=== PATIENT | female | born 1950 | race Caucasian/White ===

== ENCOUNTER → 2016-10-27 | Outpatient (REF) | payer BC ==
[2016-10-27 18:16] LABS: AMYLASE 71 U/L (25-115)
== END ==
LOC: M LAB REF 16:26
PROVIDERS: ATTEND Nurse Practitioner Family
DX: R10.11 Right upper quadrant pain (principal)

== ENCOUNTER → 2018-03-27 | Outpatient (REF) | payer BC ==
[2018-03-27 18:27] LABS: AMYLASE 69 U/L (25-115)
[2018-03-27 18:27] LABS: LIPASE 246 U/L (73-393)
[2018-03-28 08:13] LABS: CONTROL LINE HPYORI INT CTR LINE PRESENT; H PYLORI QUALITATIVE IgG NEGATIVE (NEGATIVE)
== END ==
LOC: M LAB REF 17:09
DX: R10.11 Right upper quadrant pain (principal)
CPT/HCPCS: 82150

== ENCOUNTER → 2020-07-28 | Outpatient (REF) | payer BC, MEDICARE ==
[2020-07-28 16:31] LABS: C REACTIVE PROTEIN QUANTITATIV 0.38 MG/DL (0.00-0.30)
== END ==
LOC: M LAB REF 15:14
PROVIDERS: ATTEND Internal Medicine
DX: M35.9 Systemic involvement of connective tissue, unspecified (principal)

== ENCOUNTER → 2021-04-09 | Outpatient (CLI) | payer MEDICARE, BC ==
--- NOTE | 2021-04-11 21:01 | HOLTMON ---
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 No activity reported with the maximum heart rate. No pause. Very rare isolated PACs. No supraventricular run. Rare isolated PVCs. No ventricular run. The computer reported runs but there were artifacts. Symptoms: None reported. Electronically Signed on 04-11-2021 21:01:35 EDT by Antonio Wang
== END ==
LOC: M EKG 09:47
PROVIDERS: ATTEND Internal Medicine
DX: R00.2 Palpitations (principal)

== ENCOUNTER → 2021-07-29 | Outpatient (CLI) | payer MEDICARE, BC | LOC: M CARPUL 12:38 | PROVIDERS: ATTEND Nurse Practitioner Adult Health | DX: I48.0 Paroxysmal atrial fibrillation (principal) ==

== ENCOUNTER → 2022-03-14 | Outpatient (CLI) | payer MEDICARE, BC ==
[2022-03-14 17:24] LABS: BLOOD UREA NITROGEN 13 MG/DL (7-18); CREATININE FOR GFR 0.82 MG/DL (0.55-1.30); GLOMERULAR FILTRATION RATE > 60.0 (>39)
== END ==
LOC: M WUC 14:21
PROVIDERS: ATTEND Physician Assistant
DX: R42 Dizziness and giddiness (principal)

== ENCOUNTER → 2022-11-26 | Outpatient (CLI) | payer MEDICARE, BC ==
[2022-11-26 10:32] LABS: BASO % 0.5 % (0.0-1.0); EOS # 0.1 10^3/uL (0.0-0.5); EOS % 1.4 % (0.0-3.0); HEMATOCRIT 41.8 % (36.0-47.0); HEMOGLOBIN 14.3 g/dl (12.0-15.5); LYMPH # 1.4 10^3/uL (1.5-5.0); LYMPH % 32.8 % (24.0-44.0); MEAN CORPUSCULAR HEMOGLOBIN 31.2 pg (27.0-33.0); MEAN CORPUSCULAR HGB CONC 34.2 g/dl (32.0-36.5); MEAN CORPUSCULAR VOLUME 91.3 fl (80.0-96.0); MONO # 0.3 10^3/uL (0.0-0.8); MONO % 7.7 % (2.0-8.0); NEUTROPHILS # 2.5 10^3/uL (1.5-8.5); NEUTROPHILS % 57.4 % (36.0-66.0); PLATELET COUNT, AUTOMATED 317 10^3/uL (150-450); RED BLOOD COUNT 4.58 10^6/uL (4.00-5.40); WHITE BLOOD COUNT 4.3 10^3/uL (4.0-10.0)
[2022-11-26 10:38] LABS: ERYTHROCYTE SEDIMENTATION RATE 33 mm/hr (0-30)
[2022-11-26 10:49] LABS: LIPASE 51 U/L (12-53)
[2022-11-26 10:51] LABS: ALBUMIN 4.1 G/DL (3.2-5.2); ALKALINE PHOSPHATASE 94 U/L (46-116); ALT/SGPT 42 U/L (7.0-40); AMYLASE 70 U/L (30-118); AST/SGOT 26 U/L (<34); BILIRUBIN,TOTAL 0.9 MG/DL (0.3-1.2); BLOOD UREA NITROGEN 13 MG/DL (9-23); CALCIUM LEVEL 9.4 MG/DL (8.3-10.6); CARBON DIOXIDE LEVEL 25 MMOL/L (20-31); CHLORIDE LEVEL 107 MMOL/L (98-107); CREATININE FOR GFR 0.79 MG/DL (0.55-1.30); GLOMERULAR FILTRATION RATE > 60.0 (>39); GLUCOSE, FASTING 93 MG/DL (74-106); MAGNESIUM LEVEL 1.8 MG/DL (1.8-2.4); POTASSIUM SERUM 3.7 MMOL/L (3.5-5.1); SODIUM LEVEL 142 MMOL/L (136-145); TOTAL PROTEIN 7.1 G/DL (5.7-8.2)
[2022-11-26 10:55] LABS: THYROID STIMULATING HORMONE 5.003 uIU/ML (0.55-4.78)
[2022-11-26 10:56] LABS: FREE T4 1.08 NG/DL (0.89-1.76)
== END ==
LOC: M LAB 09:55
PROVIDERS: ATTEND Registered Nurse
DX: K52.9 Noninfective gastroenteritis and colitis, unspecified (principal)

== ENCOUNTER → 2022-11-28 | Outpatient (CLI) | payer MEDICARE, BC ==
[~2022-11-28] MED LIST: GASTROGRAFIN SOLUTION 30ML As Ordered ONE; ISOVUE-370 76% 100ML VIAL As Ordered ONE
== END ==
LOC: M RAD 10:09
PROVIDERS: ATTEND Registered Nurse
DX: K52.9 Noninfective gastroenteritis and colitis, unspecified (principal)
CPT/HCPCS: 74177; Q9963; Q9967

== ENCOUNTER → 2022-11-30 | Outpatient (REF) | payer MEDICARE, BC | LOC: M LAB REF 09:57 | DX: K52.9 Noninfective gastroenteritis and colitis, unspecified (principal) ==

== ENCOUNTER → 2022-12-13 | Outpatient (REF) | payer MEDICARE, BC | LOC: M LAB REF 09:30 | PROVIDERS: ATTEND Physician Assistant | DX: R30.0 Dysuria (principal) ==

== ENCOUNTER → 2023-07-27 | Outpatient (CLI) | payer MEDICARE ==
[~2023-07-27] MED LIST changes: +ERGO500029 PO; +FLUO10CA18 PO; -GASTROGRAFIN SOLUTION 30ML As Ordered ONE; -ISOVUE-370 76% 100ML VIAL As Ordered ONE; +MELO7.5T35 PO; +METO1TAB32 PO; +RABE1TAB4 PO
== END ==
LOC: M ONCR 12:35
PROVIDERS: ATTEND General Practice
DX: C44.311 Basal cell carcinoma of skin of nose (principal); Z90.710 Acquired absence of both cervix and uterus; Z71.2 Person consulting for explanation of examination or test findings; Z88.0 Allergy status to penicillin; Z88.1 Allergy status to other antibiotic agents; Z88.2 Allergy status to sulfonamides; Z88.8 Allergy status to other drugs, medicaments and biological substances; Z79.1 Long term (current) use of non-steroidal anti-inflammatories (NSAID); Z79.899 Other long term (current) drug therapy

== ENCOUNTER 2023-08-09 13:46 | Outpatient (RCR) | payer MEDICARE | END 2023-08-16 | LOC: M ONCR 13:46 | PROVIDERS: ATTEND General Practice | DX: Z51.0 Encounter for antineoplastic radiation therapy (principal); C44.311 Basal cell carcinoma of skin of nose ==

== ENCOUNTER 2023-09-14 09:57 | Outpatient (RCR) | payer MEDICARE ==
[~2023-09-14 09:57] MED LIST changes: +AZIT-12 PO
== END 2023-09-16 ==
LOC: M ONCR 09:57
PROVIDERS: ATTEND General Practice
DX: Z51.0 Encounter for antineoplastic radiation therapy (principal); C44.311 Basal cell carcinoma of skin of nose

== ENCOUNTER 2023-10-04 09:56 | Outpatient (RCR) | payer MEDICARE ==
[~2023-10-04 09:56] MED LIST changes: +FLUO-290 PO; -FLUO10CA18 PO
== END 2023-10-16 ==
LOC: M ONCR 09:56
PROVIDERS: ATTEND General Practice
DX: Z51.0 Encounter for antineoplastic radiation therapy (principal); C44.311 Basal cell carcinoma of skin of nose

== ENCOUNTER → 2023-11-01 | Outpatient (CLI) | payer MEDICARE ==
[~2023-11-01] MED LIST changes: +FLUC100T3 PO
== END ==
LOC: M ONCR 10:24 → EDSTATUS 15:23 → M ONCR 11-16 15:23
PROVIDERS: ATTEND General Practice
DX: Z08 Encounter for follow-up examination after completed treatment for malignant neoplasm (principal); Z85.828 Personal history of other malignant neoplasm of skin; Z92.3 Personal history of irradiation; B37.0 Candidal stomatitis; D84.9 Immunodeficiency, unspecified

== ENCOUNTER → 2024-01-09 | Outpatient (CLI) | payer MEDICARE ==
[~2024-01-09] MED LIST changes: +NYST-38 SSP
== END ==
LOC: M ONCR 12:49
PROVIDERS: ATTEND General Practice
DX: Z08 Encounter for follow-up examination after completed treatment for malignant neoplasm (principal); Z85.828 Personal history of other malignant neoplasm of skin; R07.0 Pain in throat; R09.82 Postnasal drip; B37.0 Candidal stomatitis; Z71.2 Person consulting for explanation of examination or test findings; Z88.0 Allergy status to penicillin; Z88.1 Allergy status to other antibiotic agents; Z88.2 Allergy status to sulfonamides; Z88.8 Allergy status to other drugs, medicaments and biological substances; Z79.899 Other long term (current) drug therapy; Z92.3 Personal history of irradiation
CPT/HCPCS: 31575; G0463

== ENCOUNTER → 2024-02-27 | Outpatient (CLI) | payer MEDICARE ==
[~2024-02-27] MED LIST changes: +ISOVUE-370 76% 100ML VIAL ONE
== END ==
LOC: M PLAIMG 08:59
PROVIDERS: ATTEND Internal Medicine
DX: R68.2 Dry mouth, unspecified (principal); Z92.3 Personal history of irradiation; E04.1 Nontoxic single thyroid nodule
CPT/HCPCS: 70492; Q9967

== ENCOUNTER → 2024-03-12 | Outpatient (CLI) | payer MEDICARE ==
[~2024-03-12] MED LIST changes: +CYMB1CAP5 PO; -ISOVUE-370 76% 100ML VIAL ONE; +LIDO15SO8 PO
== END ==
LOC: M ONCR 08:35
PROVIDERS: ATTEND General Practice
DX: R07.0 Pain in throat (principal); H92.02 Otalgia, left ear; C44.311 Basal cell carcinoma of skin of nose; Z92.3 Personal history of irradiation; Z88.0 Allergy status to penicillin; Z88.1 Allergy status to other antibiotic agents; Z88.2 Allergy status to sulfonamides

== ENCOUNTER → 2024-06-20 | Outpatient (CLI) | payer MEDICARE | LOC: M WHC 10:02 | PROVIDERS: ATTEND Internal Medicine Gastroenterology | DX: K82.4 Cholesterolosis of gallbladder (principal); K76.0 Fatty (change of) liver, not elsewhere classified; N28.1 Cyst of kidney, acquired ==

== ENCOUNTER → 2024-07-06 | Outpatient (REF) | payer MEDICARE | LOC: M LAB REF 19:31 | PROVIDERS: ATTEND Physician Assistant Medical | DX: N39.0 Urinary tract infection, site not specified (principal) ==

== ENCOUNTER → 2025-03-09 | Outpatient (REF) | payer MEDICARE ==
[~2025-03-09] MED LIST changes: -RABE1TAB4 PO; +RABE1TAB5 PO
== END ==
LOC: M LAB REF 18:59
PROVIDERS: ATTEND Student in an Organized Health Care Education/Training Program
DX: R30.0 Dysuria (principal)

== ENCOUNTER → 2025-03-10 | Outpatient (REF) | payer MEDICARE | LOC: M LAB REF 17:26 | PROVIDERS: ATTEND Nurse Practitioner Family | DX: R30.0 Dysuria (principal) ==